=== PATIENT | female | born 1960 | race Asian ===

== ENCOUNTER 2018-03-20 16:12 | Emergency (ER) | payer MEDICARE ==
[~2018-03-20] VITALS: Ht 167.6 cm; Wt 92.7 kg
[~2018-03-20 16:12] MED LIST: ASPIRIN EC81 MG PO; COREG6.25 MG PO; GLUCOPHAGE1000 MG PO; LANTUS SOL100 UNIT/1 SQ; LASIX20 MG PO; PRED FORTE5 ML EACH EYE; TIMOLOL MALEATE15 ML EACH EYE; ZESTRIL20 MG PO; ZOCOR40 MG PO; ZOFRAN4 MG PO
[2018-03-20 16:23] VITALS: Ht 167.6 cm; Wt 92.7 kg
[2018-03-20 17:46] LABS: BASOPHILS 0.3 % (0-2); EOSINOPHILS 5.1 % (0-7); HEMATOCRIT 37.1 % (36.0-48.0); HEMOGLOBIN 12.6 g/dL (12-16); IMMATURE GRANULOCYTES 0.2 % (0-5); LYMPHOCYTES 28.3 % (15-50); MCH 29.2 pg (26.0-34.0); MCV 85.9 fL (80.0-100.0); MEAN PLATELET VOLUME 10.3 fL (7.4-10.4); NEUTROPHILS 62.1 % (40-80); PLATELET COUNT 276 10x3/uL (130-400); RBC 4.32 10x6/uL (4.00-5.40); RDW 11.8 % (11.5-14.5)
[2018-03-20 18:02] LABS: ALBUMIN 3.1 g/dL (3.4-5.0); ANION GAP 12.5 mmol/L (8-16); BILIRUBIN - TOTAL 0.2 mg/dL (0.2-1.3); CARBON DIOXIDE 30.3 mmol/L (21.0-32.0); CREATININE - SERUM 1.2 mg/dL (0.6-1.3); POTASSIUM - SERUM 3.8 mmol/L (3.5-5.1); PROTEIN - SERUM 7.3 g/dL (6.4-8.2)
[2018-03-20 18:03] LABS: APPEARANCE CLEAR (CLEAR); BILIRUBIN NEGATIVE (NEGATIVE); COLOR STRAW (YELLOW); GLUCOSE 1000 mg/dL (NEGATIVE); KETONE NEGATIVE (NEGATIVE); NITRITE NEGATIVE (NEGATIVE); PROTEIN NEGATIVE (NEGATIVE); SPECIFIC GRAVITY 1.015 (1.005-1.020); UROBILINOGEN NORMAL (NORMAL)
[2018-03-20 20:57] VITALS: BP 113/41
== END 2018-03-20 20:57 | disposition home or self-care (01) ==
LOC: D.ER 16:12
PROVIDERS: Family Medicine
DX: E11.65 Type 2 diabetes mellitus with hyperglycemia (principal); I10 Essential (primary) hypertension

== ENCOUNTER 2020-08-09 14:58 | Emergency (ER) | payer MEDICARE ==
[~2020-08-09] VITALS: Ht 167.6 cm; Wt 95.3 kg
[~2020-08-09 14:58] MED LIST changes: +DECADRON4 MG PO; +DULERA 200 MCG8.8 GM INH; +FEXOFENADINE HC60 MG PO; +HUMULIN R100 UNIT/1 SC; +LANTUS INS100 UNITS/ SC; +MELATONIN 3 MG1 TAB PO; +MUCINEX DM ER1 EAC1 PO; +PROCARDIA XL60 MG PO; +VENTOLIN HFA [SP8 GM INH; +VITAMIN C PO; +VITAMIN D325 MC1 PO; +ZINC-220220 MG PO
[2020-08-09 15:08] VITALS: Ht 167.6 cm; Wt 95.3 kg
[2020-08-09 15:34] LABS: BASOPHILS 0.4 % (0-2); EOSINOPHILS 8.9 % (0-7); HEMATOCRIT 35.1 % (36.0-48.0); HEMOGLOBIN 11.3 g/dL (12-16); IMMATURE GRANULOCYTES 0.1 % (0-5); LYMPHOCYTE ABS# 2.55 10x3/uL (1.18-3.74); LYMPHOCYTES 35.1 % (15-50); MCHC 32.2 g/dL (31.0-37.0); MCV 83.8 fL (80.0-100.0); MEAN PLATELET VOLUME 9.3 fL (7.4-10.4); MONOCYTES 5.2 % (2-11); NEUTROPHIL ABS# 3.65 10x3/uL (1.56-6.13); NEUTROPHILS 50.3 % (40-80); PLATELET COUNT 267 10x3/uL (130-400); RBC 4.19 10x6/uL (4.00-5.40); RDW 14.6 % (11.5-14.5); WBC 7.3 10x3/uL (4.8-10.8)
[2020-08-09 15:48] LABS: CALC OSMOLALITY 297 mosm/kg (275-300); CALCIUM 9.5 mg/dL (8.5-10.1); CHLORIDE - SERUM 103 mmol/L (98-107); CREATININE - SERUM 2.3 mg/dL (0.6-1.3); GLUCOSE 255 mg/dL (74-106); POTASSIUM - SERUM 4.3 mmol/L (3.5-5.1); SODIUM 138 mmol/L (136-145); UREA NITROGEN 48 mg/dL (7-18); eGFR NON AFRICAN AMERICAN 23 mL/min (90-120)
[2020-08-09 15:49] LABS: APTT 30.7 SECONDS (22.8-39.4); INR 1.06 (0.85-1.17); PROTIME 12.8 SECONDS (11.6-15.0)
[2020-08-09 16:04] LABS: ALBUMIN 3.1 g/dL (3.4-5.0); ALKALINE PHOSPHATASE 75 U/L (30-120); ALT (SGPT) 17 U/L (10-68); BILIRUBIN - TOTAL 0.21 mg/dL (0.2-1.3); CKMB 1.3 U/L (0.0-3.6); CREATINE KINASE 52 UL (21-215); MAGNESIUM - SERUM 1.9 mg/dL (1.8-2.4); PROTEIN - SERUM 7.8 g/dL (6.4-8.2); THYROID STIMULATING HORMONE 1.79 uIU/mL (0.36-3.74)
[2020-08-09 16:12] LABS: TROPONIN-I < 0.017 ng/mL (0.000-0.060)
[2020-08-09] MEDS ORDERED: VALTREX1000 MG PO (17:10)
[2020-08-09 17:47] VITALS: BP 194/92
== END 2020-08-09 17:47 | disposition home or self-care (01) ==
LOC: D.ER 14:58
PROVIDERS: Family Medicine
DX: G51.0 Bell's palsy (principal); N17.9 Acute kidney failure, unspecified; E11.22 Type 2 diabetes mellitus with diabetic chronic kidney disease; E11.65 Type 2 diabetes mellitus with hyperglycemia; I12.9 Hypertensive chronic kidney disease with stage 1 through stage 4 chronic kidney disease, or unspecified chronic kidney disease; Z79.4 Long term (current) use of insulin